=== PATIENT | female | born 1945 | race African-American/Black ===

== ENCOUNTER 2018-03-13 06:59 | Inpatient (IN) | payer MEDICARE ==
[2018-03-10 10:30] LABS: BASOPHILS % 0.7 % (0.0-1.0); EOSINOPHILS # (AUTO) 0.5 (0.0-0.4); EOSINOPHILS % 7.9 % (0.0-6.0); HEMATOCRIT 41.5 % (34.2-44.1); HEMOGLOBIN 13.7 g/dL (12.0-16.0); LYMPHOCYTES # (AUTO) 2.5 (1.0-3.2); MEAN CORPUSCULAR HEMOGLOBIN 29.8 pg (28-32); MEAN CORPUSCULAR VOLUME 90.2 fL (81-99); MONOCYTES # (AUTO) 0.4 (0.2-0.8); MONOCYTES % 6.3 % (4.4-11.3); NEUTROPHILS # (AUTO) 2.4 (2.1-6.9); NEUTROPHILS % 41.9 % (38.7-80.0); PLATELET COUNT 286 x10e3/uL (140-360); RED CELL DISTRIBUTION WIDTH 13.4 % (11.7-14.4)
--- NOTE | 2018-03-10 11:33 | Diagnostic Imaging Report ---
EXAMINATION: CHEST 2 VIEWS COMPARISON: None FINDINGS: TUBES and LINES: None. LUNGS: Lungs are well inflated. Lungs are clear. There is no evidence of pneumonia or pulmonary edema. PLEURA: No pleural effusion or pneumothorax. HEART AND MEDIASTINUM: The cardiomediastinal silhouette is unremarkable. There are atherosclerotic calcifications within the aorta. BONES AND SOFT TISSUES: No acute osseous lesion. Soft tissues are unremarkable. UPPER ABDOMEN: No free air under the diaphragm. IMPRESSION: No acute radiographic abnormality. Signed by: Dr. Ryan Humphreys MD on 03/10/2018 11:30 AM
[~2018-03-13] VITALS: Ht 167.6 cm; Wt 85.4 kg
[~2018-03-13 06:59] MED LIST: CELEXA40 MG PO; CRESTOR5 MG PO; FLUTICASONE; LISINOPRIL5 MG PO; NEURONTIN300 MG PO; PRAVASTATIN SOD20 MG PO; ZANAFLEX4 MG PO; ZYRTEC10 MG PO
--- OUTSIDE RECORDS SUMMARY | 2018-03-13 07:02 | XMS REPORT ---
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 Allergies, Adverse Reactions, Alerts This patient has no known allergies or adverse reactions. Medications This patient has no known medications. Results Test Description Test Time Test Comments Text Results Atomic Results Result Comments CHEST 2 VIEWS 2018-03-10 11:28:00 [place] [address] Patient Name: MARGRET HE MR #: [id number] : 1945 Age/Sex: 72/F Req #: [id number] Adm Physician: Ordered by: BRENDAN MATHEW MD Report #: [id number] Location: OR Room/Bed: Procedure: [id number] DX/CHEST 2 VIEWS Exam Date: 03/10/18 Exam Time: 1035 REPORT STATUS: Signed EXAMINATION: CHEST 2 VIEWS COMPARISON: None FINDINGS: TUBES and LINES: None. LUNGS: Lungs are well inflated. Lungs are clear. There is no evidence of pneumonia or pulmonary edema. PLEURA: No pleural effusion or pneumothorax. HEART AND MEDIASTINUM: The cardiomediastinal silhouette is unremarkable. There are atherosclerotic calcifications within the aorta. BONES AND SOFT TISSUES: No acute osseous lesion. Soft tissues are unremarkable. UPPER ABDOMEN: No free air under the diaphragm. IMPRESSION: No acute radiographic abnormality. Signed by: Dr. Carolyn Segura MD on 03/10/2018 11:30 AM Dictated By: CAROLYN SEGURA MD 113 Transcribed By: GEOFFREY on 03/10/181129 COPY TO: BRENDAN MATHEW MD
[2018-03-13] MEDS ORDERED: ROPIVACAINE 246.25 MG, EPINEPHRINE HCL 1:1000 0.5 MG, CLONIDINE HCL 0.08 MG, KETOROLAC ... INJ ONE ×5 (07:30)
[2018-03-13] MEDS ORDERED: DEXAMETHASONE SOD PHOS 10 MG/1 ML VIAL ONE (07:38)
[2018-03-13] MEDS ORDERED: GABAPENTIN 300 MG CAP ONE (07:38)
[2018-03-13] MEDS ORDERED: CEFAZOLIN SOD 2 GM/D5W 50ML 50 ML IV ONE (07:38)
[2018-03-13] MEDS ORDERED: CELECOXIB 200 MG CAP ONE (07:38)
[2018-03-13] MEDS ORDERED: TRANEXAMIC ACID 1,000 MG/10 ML ML ONE (07:45)
[2018-03-13] MEDS ORDERED: BACITRACIN 50,000 UNIT VIAL ONE (07:45)
[2018-03-13] MEDS ORDERED: BUPIVACAINE 7.5MG/ML /DEXTROSE 82.5MG/ML 2 ML AMP INJ ONE (08:11)
[2018-03-13] MEDS ORDERED: HYDROGEN PEROXIDE 120 ML BTL ONE (10:04)
[2018-03-13] MEDS ORDERED: HYDROCODONE/APAP 5MG-325MG TAB PO PRN (11:15)
[2018-03-13] MEDS ORDERED: DOCUSATE SODIUM 100 MG CAP PO PRN (11:15)
[2018-03-13] MEDS ORDERED: ONDANSETRON HCL INJ 2 MG/ML VIAL IV PRN (11:15)
[2018-03-13] MEDS ORDERED: ACETAMINOPHEN 650 MG SUPP PR PRN (11:15)
[2018-03-13] MEDS ORDERED: KETOROLAC TROMETHAMINE 30 MG/ML VIAL IV PRN (11:15)
[2018-03-13] MEDS ORDERED: PROMETHAZINE HCL (IM) 25 MG/ML VIAL IM PRN (11:15)
[2018-03-13] MEDS ORDERED: DIPHENHYDRAMINE HCL INJ 50 MG/ML VIAL IM/IV PRN (11:15)
[2018-03-13] MEDS ORDERED: FENTANYL CITRATE/PF 100MCG/2 ML INJ ONE ×2 (11:31→17:12)
[2018-03-13] MEDS: ACETAMINOPHEN 1000 MG/100 ML IV SCH ×2 (12:00→18:50)
--- NOTE | 2018-03-13 13:38 | Diagnostic Imaging Report ---
Pelvis - 2 view AP radiographs History: Post op Findings: Status post total right hip arthroplasty with prosthetic components in anatomic alignment. Overlying subcutaneous emphysema and surgical skin deepika are present. No evidence of fracture. Findings of prior left total hip arthroplasty. Heterotopic ossification is present. No evidence of fracture, malalignment, or radiographic evidence of loosening. IMPRESSION: Post operative changes status post right total hip arthroplasty and prior left total hip arthroplasty as above. Signed by: Dr. Ryan Humphreys MD on 03/13/2018 1:35 PM
[2018-03-13] MEDS ORDERED: CEFAZOLIN SOD 1 GM/D5W 50ML 50 ML IV SCH (14:00)
[2018-03-13] MEDS ORDERED: CELECOXIB 100 MG CAP PO SCH (17:00)
[2018-03-13] MEDS ORDERED: LIDOCAINE HCL 2% LOCAL INJ 5 ML SDV VIAL INJ ONE (17:11)
[2018-03-13] MEDS ORDERED: PROPOFOL IV EMULSION 10 MG/ML 20 ML VIAL ONE (17:11)
[2018-03-13] MEDS ORDERED: MIDAZOLAM HCL 2 MG/2 ML VIAL ONE (17:12)
[2018-03-13 18:18] VITALS: BP 124/70
[2018-03-13] MEDS ORDERED: CEFAZOLIN SOD 1 GM VIAL ONE (18:28)
[2018-03-13] MEDS: CEFAZOLIN SOD 1 GM VIAL IV SCH (18:40)
[2018-03-13] MEDS: CELECOXIB 200 MG CAP PO SCH (18:49)
[2018-03-13] MEDS: ASPIRIN 325 MG TAB PO SCH (18:49)
[2018-03-13 19:00] VITALS: BP 124/70
[2018-03-13 19:20] VITALS: BP 124/70
[2018-03-13] MEDS ORDERED: SODIUM CHLORIDE 0.9% 50ML 50 ML ONE (20:29)
[2018-03-13] MEDS ORDERED: ZOLPIDEM TARTRATE 5 MG TAB PO PRN (21:00)
[2018-03-13 21:11] VITALS: BP 113/69
[2018-03-13] MEDS: SODIUM CHLORIDE 0.9% 1000ML 1,000 ML IV SCH (23:08)
[2018-03-14 00:15] VITALS: BP 124/55
[2018-03-14] MEDS: CEFAZOLIN SOD 1 GM VIAL IV SCH ×2 (03:48→08:50)
[2018-03-14] MEDS: HYDROCODONE/APAP 7.5MG-325MG 1 EA TAB PO PRN ×3 (04:10→14:30)
[2018-03-14 05:41] VITALS: BP 157/81
[2018-03-14 06:12] LABS: HEMATOCRIT 34.6 % (34.2-44.1); HEMOGLOBIN 11.5 g/dL (12.0-16.0)
[2018-03-14] MEDS: ACETAMINOPHEN 1000 MG/100 ML IV SCH ×2 (06:18)
[2018-03-14] MEDS: SODIUM CHLORIDE 0.9% 1000ML 1,000 ML IV SCH ×2 (06:18→07:01)
[2018-03-14 08:00] VITALS: BP 157/81
[2018-03-14] MEDS ORDERED: ASPIRIN325 MG PO (08:29)
[2018-03-14 08:36] VITALS: BP 129/62
[2018-03-14] MEDS: CELECOXIB 200 MG CAP PO SCH (08:50)
[2018-03-14] MEDS: ASPIRIN 325 MG TAB PO SCH (08:50)
--- NOTE | 2018-03-14 09:54 | Operative Report ---
DATE OF PROCEDURE: March 13, 2018 PUBLISHER ASSISTANT: Brain Cleary PA-C The patient was brought to the operating room for induction of anesthesia. Throughout this case, my PA's assistance was necessary for retraction of soft tissue and positioning of the extremity. This allows for efficient and technically successful execution of the operation and is considered medically necessary. PREOPERATIVE DIAGNOSIS: Osteoarthritis, right hip. POSTOPERATIVE DIAGNOSIS: Osteoarthritis, right hip. PROCEDURE: Right total hip arthroplasty. INDICATIONS: The patient is a 72-year-old lady who has end-stage arthritis of her right hip. She has failed conservative management and would like to proceed with a right hip replacement. She has been through a left hip replacement and is happy with her outcome. The risks and benefits of the procedure have been discussed. She states she understands and wishes to proceed. DESCRIPTION OF PROCEDURE: The patient was brought to the operating room and placed under spinal anesthetic. She was positioned in the left lateral decubitus position. Her right hip was prepped and draped in a sterile manner. A preoperative time out was performed. A posterior approach was made to the right hip. Hemostasis was obtained with electrocautery. Care was taken to avoid injury to the sciatic nerve. A deep Charnley retractor was placed. The posterior capsule was exposed and released. The piriformis insertion was preserved. The hip was dislocated, and an oscillating saw was used to resect the femoral head. Complete loss of articular cartilage was noted. Acetabular retractors were placed. The true floor of the acetabulum was established with a 46-mm reamer. The socket was sequentially reamed up to 55 mm. This accomplished bleeding hemispherical cancellous bone. The hip was thoroughly irrigated with a shower-tip pulsatile lavage. A Darlyn Trident 56 mm outer diameter socket was then impacted into place. Excellent fixation was obtained. Fixation was augmented with a single 25-mm screw placed into the ilium. Excellent bone quality was encountered. A highly cross-linked polyethylene liner with no posterior elevation was then impacted into place. Care was taken to make sure that there was no evidence of soft-tissue interposition. The socket was packed with a moistly soaked lap sponge. Attention was directed towards the proximal femur. A box cutting osteotome and taper pin reamer were used to establish entry to the femoral canal. The Darlyn Wilmette broaches were trialed. Just like the other side, she had a tight canal. A 35.5-mm stem was necessary. This was impacted and seated. Trial reductions were performed. We were able to accomplish good stability and spiritism of limb length with a standard 36-mm head. The trial implants were removed. A small bone plug was placed down the canal. The canal was thoroughly irrigated with a pulsatile lavage and then packed with moistly soaked peroxide sponges under suction. Two mixes of Simplex cement preloaded with antibiotics were prepared on the back table. This was inserted in a retrograde fashion and pressurized. The stem was seated to the predetermined level in about 15 degrees of anteversion. Once the cement had cured, repeat trial reductions were performed. A standard 36-mm head was felt to be optimal. The head was seated on a clean and dry stem. Final reduction was performed. The posterior capsule was repaired with interrupted #2 Ethibond. The proximal tensor fascia and gluteal fascia were closed with interrupted #2 Ethibond. The skin was closed with subcuticular Vicryl and deepika. A sterile Aquacel bandage was applied. The patient was returned to the supine position. She was transported to the recovery room in stable condition. Estimated blood loss was approximately 100 mL. At the end of the procedure, all needle and sponge counts were correct. Job#: [id number]
[2018-03-14] MEDS ORDERED: ACETAMINOPHEN 1000 MG/100 ML IV PRN (11:15)
[2018-03-14 12:49] VITALS: BP 120/67
--- NOTE | 2018-04-29 12:21 | Consultation ---
DATE OF CONSULTATION: March 14, 2018 REASON FOR CONSULTATION: Postop medical management. HISTORY OF PRESENT ILLNESS: Patient is a 72-year-old female who is status post right hip arthroplasty, who is doing well postoperatively with good pain control. Denies any chest pain, fever, chills, nausea, vomiting, headaches, or shortness of breath on review of systems. PAST MEDICAL HISTORY: Hypertension and hyperlipidemia. MEDICATIONS: See MAR. ALLERGIES: NONE SOCIAL HISTORY: Nonsmoker, nondrinker. FAMILY HISTORY: Noncontributory. PHYSICAL EXAMINATION VITAL SIGNS: Temperature 97.3, pulse 74, blood pressure 124/55, and sats are 97%. GENERAL: No apparent distress. LUNGS: Clear to auscultation bilaterally. NECK: Supple. No lymphadenopathy. CARDIOVASCULAR: Regular rate and rhythm. ABDOMEN: Good bowel sounds. Soft and nontender. EXTREMITIES: No clubbing or cyanosis. NEUROLOGIC: Nonfocal. ASSESSMENT AND PLAN 1. Hip fracture. Continue with physical therapy since she is now status post repair. 2. Anemia. Check a CBC. 3. Hypertension. Continue to monitor. 4. Hyperlipidemia. Continue with her medications at discharge. Please see hospital chart for full details. Job#: [id number] GEORGI
== END 2018-03-14 15:08 | disposition home health service (06) | DRG 470 ==
LOC: OR 06:59 → PACU V 11:02 → MED/SURG 18:24
PROVIDERS: ADMIT Specialist; ATTEND Specialist
PROC: 0SR902A Replacement of Right Hip Joint with Metal on Polyethylene Synthetic Substitute, Uncemented, Open Approach (ICD-10-PCS; principal; 2018-03-13 09:00)
DX: M16.0 Bilateral primary osteoarthritis of hip (principal); E78.5 Hyperlipidemia, unspecified; I10 Essential (primary) hypertension; F17.210 Nicotine dependence, cigarettes, uncomplicated; Z96.642 Presence of left artificial hip joint
CPT/HCPCS: 36415; 71046; 72170; 85014; 85018; 85025; 86850; 86900; 86920; 93005; 94640; 97139; C1713; J0171; J0690; J1100; J1200; J1885; J2001; J2250; J2405; J2550; J2795; J7030